=== PATIENT | female | born 1975 | race Caucasian/White ===

== ENCOUNTER 2016-12-12 15:34 | Observation (INO) | payer OTHER ==
[2016-12-12 15:42] VITALS: BMI 25.6
[2016-12-12] MEDS ORDERED: Sodium Chloride 0.9% 1,000 ML IV STA (16:26)
[2016-12-12 16:54] LABS: ADD MANUAL DIFF? NO
[2016-12-12 17:02] LABS: BASO # 0.04 K/mm3 (0.0-2.0); BASO % 0.5 % (0.0-3.0); EOS # 0.1 (0.0-0.7); GRAN # 3.92 (1.4-6.5); GRAN % 49.4 % (50.0-68.0); HEMATOCRIT 38.8 % (36.0-48.0); LYMPH # 3.5 (1.2-3.4); LYMPH % 43.9 % (22.0-35.0); MEAN CELL VOLUME 82.6 fL (80.0-105.0); MEAN CORPUSCULAR HEMOGLOBIN 28.7 pg (25.0-35.0); MEAN CORPUSCULAR HGB CONC 34.8 g/dl (31.0-37.0); MONO # 0.4 (0.1-0.6); MONO % 5.2 % (1.0-6.0); PLATELET COUNT 342 10^3/uL (120.0-450.0); RED CELL DISTRIBUTION WIDTH 14.2 % (11.5-14.5); WHITE BLOOD COUNT 7.9 10^3/ul (4.5-11.0)
[2016-12-12 17:16] LABS: INR 1.04 (0.93-1.08); PARTIAL THROMBOPLASTIN TIME 23.5 Seconds (23.7-30.8)
[2016-12-12 17:17] LABS: ALB/GLOB RATIO 1.3 (1.1-1.8); ALKALINE PHOSPHATASE 86 U/L (38-133); ALT/SGPT 20 U/L (7-56); AST/SGOT 30 U/L (15-39); BILIRUBIN,TOTAL 0.7 mg/dL (0.2-1.3); BLOOD UREA NITROGEN 20 mg/dL (7-21); CALCIUM 9.9 mg/dL (8.4-10.5); CARBON DIOXIDE 29 mmol/L (21-33); CHLORIDE 91 mmol/L (98-107); GFR AFRICAN-AMERICAN > 60; GLUCOSE,RANDOM 295 mg/dL (70-110); MAGNESIUM 1.8 mg/dL (1.7-2.2); POTASSIUM 3.7 mmol/L (3.6-5.0); SODIUM 134 mmol/L (132-148)
--- NOTE | 2016-12-12 17:17 | ED PDOC ---
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 pt states was getting out of car, does not recall what happened, and was on floor on ground, with bystanders at bedside helping her. ems called, sent to er for eval. c/o of left knee and left elbow pain, and yo. no cp, abd pain, or other complaints 12/12/16 18:06 Past Medical History - Provider Review Nursing Documentation Reviewed: Yes - Infectious Disease Hx of Infectious Diseases: None - Cardiac Hx Hypertension: Yes Other/Comment: SVT - Pulmonary Hx Respiratory Disorders: No - Neurological Hx Neurological Disorder: Yes Other/Comment: [place] Palsy - HEENT Hx HEENT Disorder: No - Renal Hx Renal Disorder: No - Endocrine/Metabolic Hx Diabetes Mellitus Type 1: Yes Hx Diabetes Mellitus Type 2: Yes - Hematological/Oncological Hx Blood Disorders: No - Integumentary Hx Dermatological Disorder: No - Musculoskeletal/Rheumatological Hx Musculoskeletal Disorders: Yes Other/Comment: L knee ? tear - Gastrointestinal Hx Gastrointestinal Disorders: No - Genitourinary/Gynecological Hx Genitourinary Disorders: No - Psychiatric Hx Depression: Yes Hx Substance Use: No - Anesthesia Hx Anesthesia: No - Suicidal Assessment Feels Threatened In Home Enviroment: No Family/Social History - Physician Review Nursing Documentation Reviewed: Yes Family/Social History: Unknown Family HX Smoking Status: Never Smoked Hx Alcohol Use: No Hx Substance Use: No Allergies/Home Meds Allergies/Adverse Reactions: Allergies hair dye Allergy (Uncoded 11/03/16 21:41) RASH Home Medications: Home Meds Medication Instructions Recorded Confirmed Esomeprazole Magnesium [Nexium] 1 tab PO DAILY 07/25/14 07/25/14 Glimepiride 1 tab PO DAILY 07/25/14 07/25/14 Metoprolol Succinate 1 tab PO DAILY 07/25/14 07/25/14 Sitagliptin Phosphate [Januvia] 1 tab PO DAILY 07/25/14 07/25/14 Aspirin [Aspirin EC] 325 mg PO DAILY 12/13/16 12/13/16 Atenolol/Chlorthalidone 1 tab PO DAILY 12/13/16 12/13/16 [Atenolol-Chlorthalidone 100-25] Atorvastatin Calcium 20 mg PO DIN 12/13/16 12/13/16 Cetirizine HCl [All Day Allergy 10 mg PO DAILY 12/13/16 12/13/16 Relief] Dicyclomine HCl 10 mg PO Q6 12/13/16 12/13/16 GlipiZIDE [Glipizide] 10 mg PO Q12 12/13/16 12/13/16 Lisinopril [Zestril] 5 mg PO DAILY 12/13/16 12/13/16 Metoprolol Tartrate [Lopressor] 100 mg PO BID 12/13/16 12/13/16 Omeprazole 40 mg PO BID 12/13/16 12/13/16 Paroxetine HCl [Paxil] 10 mg PO DAILY 12/13/16 12/13/16 Ranitidine HCl [Sunmark Acid 150 mg PO Q12 12/13/16 12/13/16 Steel Heater] Review of Systems - Review of Systems Constitutional: Normal Eyes: Normal ENT: Normal Respiratory: Normal Cardiovascular: Normal Gastrointestinal: Normal Genitourinary Female: Normal Musculoskeletal: Neck Pain, Other (elbow, knee pain) Skin: Normal Neurological: Normal Endocrine: Normal Hemo/Lymphatic: Normal Psychiatric: Normal Physical Exam Vital Signs Temp Pulse Resp BP Pulse Ox 12/13/16 00:00 98.0 F 89 20 123/68 100 12/12/16 16:40 102 H 18 126/69 99 12/12/16 15:48 98.7 F 118 H 18 128/71 99 Temperature: Afebrile Blood Pressure: Normal Pulse: Tachycardic Respiratory Rate: Normal Appearance: Positive for: Well-Appearing, Non-Toxic, Comfortable Pain Distress: None Mental Status: Positive for: Alert and Oriented X 3 Finger Stick Blood Glucose: 305 - Systems Exam Head: Present: Normocephalic, Abrasion (left side), Other (right facial droop (h /o of bells)) Pupils: Present: PERRL Extroacular Muscles: Present: EOMI Conjunctiva: Present: Normal Mouth: Present: Moist Mucous Membranes Neck: Present: Normal Range of Motion Respiratory/Chest: Present: Clear to Auscultation, Good Air Exchange. No: Respiratory Distress, Accessory Muscle Use Cardiovascular: Present: Regular Rate and Rhythm, Normal S1, S2. No: Murmurs Abdomen: Present: Normal Bowel Sounds. No: Tenderness, Distention, Peritoneal Signs Back: Present: Normal Inspection Upper Extremity: Present: Normal Inspection. No: Cyanosis, Edema Lower Extremity: Present: Normal Inspection, NORMAL PULSES, Tenderness (left knee elbow), Swelling (mild to left knee, elbow, ), Neurovascularly Intact. No : Edema Neurological: Present: GCS=15, CN II-XII Intact, Speech Normal, Motor Func Grossly Intact, Normal Cerebellar Funct Skin: Present: Warm, Dry, Normal Color. No: Rashes Psychiatric: Present: Alert, Oriented x 3, Normal Insight, Normal Concentration Medical Decision Making ED Course and Treatment: 12/12/16 17:16 ? etiology of fall. labs imaging pending. 12/12/16 17:17 ekg sinus tach [address] t wave changes. normal intervals 12/12/16 18:27 pt had blood splashed on worker. pt consents to hiv/hep panel. dr stack accepts for syncope - Lab Interpretations Lab Results: 12/12/16 16:35 12/12/16 16:35 Lab Results 12/12/16 18:23: Hepatitis A IgM Ab Negative, Hep Bs Antigen Negative, Hep B Core IgM Ab Negative, Hepatitis C Antibody Negative, HIV-1 Ab Rapid Screen Non reactive 12/12/16 17:05: Urine Color Yellow, Urine Appearance Sl cloudy, Urine pH 8.0, Ur Specific [place] 1.010, Urine Protein Trace H, Urine Glucose (UA) >=1000, Urine Ketones Negative, Urine Blood Large H, Urine Nitrate Negative, Urine Bilirubin Negative, Urine Urobilinogen 0.2, Ur Leukocyte Esterase Negative, Urine RBC Tntc, Urine WBC 2 - 5, Ur Epithelial Cells 4 - 5, Urine Bacteria Mod, Urine HCG, Qual Negative 12/12/16 16:40: POC Glucose (mg/dL) 305 H 12/12/16 16:35: WBC 7.9, RBC 4.70, Hgb 13.5, Hct 38.8, MCV 82.6, MCH 28.7, MCHC 34.8, RDW 14.2, Plt Count 342, MPV 11.0, Gran % 49.4 L, Lymph % (Auto) 43.9 H, [place] % (Auto) 5.2, Eos % (Auto) 1.0 L, Baso % (Auto) 0.5, Gran # 3.92, Lymph # 3.5 H, [place] # 0.4, Eos # 0.1, Baso # 0.04, PT 11.2, INR 1.04, APTT 23.5 L, Sodium 134, Potassium 3.7, Chloride 91 L, Carbon Dioxide 29, Anion Gap 18, BUN 20, Creatinine 0.6, Est GFR ( Amer) > 60, Est GFR (Non-Af Amer) > 60, Random Glucose 295 H, Calcium 9.9, Magnesium 1.8, Total Bilirubin 0.7, AST 30, ALT 20, Alkaline Phosphatase 86, Lactate Dehydrogenase 367, Total Creatine Kinase 21 L, Troponin I < 0.01, Total Protein 8.0, Albumin 4.5, Globulin 3.5, Albumin/Globulin Ratio 1.3 - RAD Interpretation Radiology Orders: 12/12/16 15:55 CHEST ONE VIEW [RAD] Stat 12/12/16 15:56 HEAD W/O CONTRAST [CT] Stat ELBOW LEFT 3 VIEWS ROUTINE [RAD] Stat KNEE LEFT 2 VIEWS (AP & LAT) [RAD] Stat PELVIS ONE VIEW [RAD] Stat 12/12/16 15:57 CERVICAL SPINE W/O CONTRAST [CT] Stat - Medication Orders Current Medication Orders: Atorvastatin Calcium (Lipitor) 10 mg PO DIN PADILLA Bacitracin (Bacitracin) 1 ea TOP TID PAD[facility]A Enoxaparin Sodium (Lovenox) 40 mg SC DAILY [facility]AD[facility]A PRN Reason: Protocol Fenofibrate (Tricor) 145 mg PO DAILY [facility] Glipizide (Glucotrol) 10 mg PO ACB [facility] Last Admin: 12/13/16 08:37 Dose: 10 MG Ibuprofen (Motrin Tab) 400 mg PO Q6 PRN PRN Reason: Pain, moderate (4-7) Last Admin: 12/13/16 00:41 Dose: 400 MG [facility] Pain/Vitals Document 12/13/16 00:41 KTR (Rec: 12/13/16 00:41 KTR [id number]) Pain Reassessment Is This A Pain ReAssessment? No Presence of Pain Presence of Pain Yes Location Left, Right or Bilateral Left Pain Location Body Site Knee Description Intermittent Re-Assess: MAR Pain/Vitals Document 12/13/16 01:41 KTR (Rec: 12/13/16 05:55 KTR [id number]) Pain Reassessment Is This A Pain ReAssessment? Yes Sleep Is patient sleeping during reassessment? Yes Insulin Detemir (Levemir) 15 unit SC Q12 [facility] Insulin Human Regular (Humulin R Low) 0 units SC ACHS [facility] Lisinopril (Zestril) 10 mg PO DAILY [facility] Metoprolol Succinate (Toprol Xl) 100 mg PO BRK [facility] Last Admin: 12/13/16 08:44 Dose: 100 MG MAR Pulse and Blood Pressure Document 12/13/16 08:44 KKA (Rec: 12/13/16 08:44 KK [id number]) Blood Pressure Blood Pressure (100/60-150/90) 125/65 Ondansetron HCl (Zofran Inj) 4 mg IVP Q6 PRN PRN Reason: Nausea/Vomiting Oxycodone/Acetaminophen (Percocet 5/325 Mg Tab) 1 tab PO Q4 PRN PRN Reason: Pain, severe (8-10) Stop: 12/15/16 19:43 Pantoprazole Sodium (Protonix Ec Tab) 40 mg PO DAILY [facility] Sitagliptin Phosphate (Januvia) 50 mg PO DAILY [facility] Discontinued Medications Acetaminophen (Tylenol 325mg Tab) 975 mg PO STAT STA Stop: 12/12/16 15:59 Last Admin: 12/12/16 16:12 Dose: 975 MG MAR Pain/Vitals Document 12/12/16 16:12 [email or web address] (Rec: 12/12/16 16:13 [email or web address] [id number]) Pain Reassessment Is This A Pain ReAssessment? No Sleep Is patient sleeping during reassessment? No Presence of Pain Presence of Pain Yes Pain Scale Used Pain Scale Used Numeric Location Pain Location Body Site Generalized Description Constant Intensity 8 Scale Used Numeric Pain Behavior Facial Grimacing Aggravating Factors Changing Position Aggravating Factors Changing Position Artificial Tears (Artificial Tears) 1 ml OU TID PADILLA Artificial Tears (Artificial Tears) 0 ml OU TID PRN PRN Reason: Dry eyes Last Admin: 12/13/16 05:21 Dose: 1 DROP Bacitracin (Bacitracin) 1 ea TOP ONCE ONE Stop: 12/12/16 18:07 Last Admin: 12/12/16 19:00 Dose: 1 EA Glipizide (Glucotrol) 10 mg PO 1630 [facility] Sodium Chloride (Sodium Chloride 0.9%) 1,000 mls @ 999 mls/hr IV .Q1H1M STA Stop: 12/12/16 17:26 Last Admin: 12/12/16 16:44 Dose: Not Given Non-Admin Reason: Patient Refused Insulin Human Regular (Humulin R Med) 1 units SC ACHS PADILLA PRN Reason: Protocol Last Admin: 12/13/16 08:37 Dose: 1 UNITS MAR Blood Glucose Document 12/13/16 08:37 [facility] (Rec: 12/13/16 08:37 [id number] Blood Glucose Finger Stick Blood Glucose (70-120) 280 Subcutaneous Administrations Document 12/13/16 08:37 [facility] (Rec: 12/13/16 08:37 [id number] Charges for Administration # of Subcutaneous Administrations 1 Metoprolol Succinate (Toprol Xl) 200 mg PO BRK [facility] Tetanus/Reduced Diphtheria/Acell Pertussis (Boostrix Vaccine Inj) 0.5 ml IM .ONCE ONE Stop: 12/12/16 18:07 Last Admin: 12/12/16 19:00 Dose: 0.5 ML [facility] Immunization Data Document 12/12/16 19:00 [email or web address] (Rec: 12/12/16 19:01 [id number]) Immunization Data Vaccine [employer] Vaccine Lot Number [id number] Vaccine Expiration Date 01/10/19 Site Given Right Deltoid Route Intramuscular Immunization Units ml Disposition/Present on Arrival - Present on Arrival Any Indicators Present on Arrival: No History of DVT/PE: No History of Uncontrolled Diabetes: No Urinary Catheter: No History of Decub. Ulcer: No History Surgical Site Infection Following: None - Disposition Have Diagnosis and Disposition been Completed?: Yes Diagnosis: Syncope Disposition: HOSPITALIZED Disposition Time: 07:00 Patient Problems: Current Active Problems Problem Status Diagnosed Syncope Acute Condition: STABLE
[2016-12-12 17:30] LABS: URINE BILIRUBIN NEGATIVE (NEGATIVE); URINE BLOOD LARGE (NEGATIVE); URINE GLUCOSE (UA) >=1000 mg/dL (NEGATIVE); URINE KETONE NEGATIVE (NEGATIVE); URINE LEUKOCYTE ESTERASE NEGATIVE Leu/uL (NEGATIVE); URINE PROTEIN TRACE mg/dL (<30 mg/dL); URINE UROBILINOGEN 0.2 E.U./dL (<1 E.U./dL)
[2016-12-12 17:33] LABS: TROPONIN I < 0.01 ng/mL
[2016-12-12 17:35] LABS: URINE APPEARANCE SL CLOUDY (CLEAR); URINE COLOR YELLOW (YELLOW)
[2016-12-12 17:36] LABS: URINE RBC TNTC /hpf (0-2)
[2016-12-12 17:37] LABS: URINE BACTERIA MOD (NEG)
--- NOTE | 2016-12-12 17:56 | CT ---
PROCEDURE: CT HEAD WITHOUT CONTRAST. HISTORY: trauma COMPARISON: 11/03/2016 TECHNIQUE: Axial computed tomography images were obtained through the head/brain without intravenous contrast. Radiation dose: Total exam DLP = 677.45 mGy-cm. FINDINGS: HEMORRHAGE: No intracranial hemorrhage. BRAIN: No mass effect or edema. No atrophy or chronic microvascular ischemic changes. VENTRICLES: Unremarkable. No hydrocephalus. CALVARIUM: Unremarkable. PARANASAL SINUSES: Unremarkable as visualized. No significant inflammatory changes. MASTOID AIR CELLS: Unremarkable as visualized. No inflammatory changes. OTHER FINDINGS: None. IMPRESSION: No intracranial hemorrhage. Unremarkable CT examination of the head
[2016-12-12] MEDS ORDERED: TDAP Vaccine 0.5 mL Syr IM ONE (18:06)
[2016-12-12] MEDS ORDERED: Bacitracin 500 Units/gm Oint Foilpak UD TOP ONE (18:06)
--- NOTE | 2016-12-12 18:14 | CT ---
CT cervical spine without IV contrast Indication: Trauma Comparison: None available Technique: Axial computed tomography images were obtained of the cervical spine without the use of intravenous contrast. Coronal and sagittal reformatted images were created and reviewed. Radiation dose: Total exam DLP = 558.18 mGy-cm. Findings: Straightening of the normal cervical lordosis may be related to muscle spasm or positioning. There is no evidence of acute fracture or subluxation. There is otherwise preserved alignment, vertebral body height, intervertebral disc spaces. The prevertebral soft tissues and spinolaminar lines appear intact. The lateral masses are preserved. The dens tip is intact. There is proper alignment of the lateral masses of C1 with the C2 vertebral body. Included portions of the thyroid gland appear heterogeneous with calcified right lower pole nodule and hypodense left lower pole nodule. Included portions of lung apices appear clear. Impression: Straightening of the normal cervical lordosis may be related to muscle spasm or positioning. No evidence of acute fracture or subluxation. Heterogeneous appearance of the included portions lower thyroid gland with calcified nodule in the right lower pole and hypodense left lower pole nodule.
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
[2016-12-12] MEDS ORDERED: Oxycodone/Acetaminophen 5/325 mg Tab PO PRN (19:42)
[2016-12-13] MEDS: Insulin Reg-MEDIUM-Coverage SC SCH ×2 (00:41→08:37)
[2016-12-13] MEDS ORDERED: Aritificial Tears (15ml) OU PRN (02:13)
--- NOTE | 2016-12-13 07:20 | RAD ---
HISTORY: fall COMPARISON: None available. TECHNIQUE: Chest, one view. FINDINGS: LUNGS: No focal consolidation. Please note that chest x-ray has limited sensitivity for the detection of pulmonary masses. PLEURA: No significant pleural effusion identified. No definite pneumothorax . CARDIOVASCULAR: The cardiomediastinal silhouette appears within normal limits of size. OSSEOUS STRUCTURES: No acute osseous abnormality identified. VISUALIZED UPPER ABDOMEN: Unremarkable. OTHER FINDINGS: None. IMPRESSION: No focal consolidation, significant pleural effusion, or definite pneumothorax identified.
[2016-12-13 07:52] LABS: ADD MANUAL DIFF? NO
[2016-12-13] MEDS ORDERED: Metoprolol Succinate 100 mg XL Tab PO SCH (08:00)
[2016-12-13 08:18] LABS: BASO # 0.03 K/mm3 (0.0-2.0); BASO % 0.4 % (0.0-3.0); EOS # 0.1 (0.0-0.7); EOS % 1.7 % (1.5-5.0); GRAN # 2.82 (1.4-6.5); GRAN % 40.8 % (50.0-68.0); HEMATOCRIT 34.5 % (36.0-48.0); LYMPH # 3.4 (1.2-3.4); LYMPH % 49.7 % (22.0-35.0); MEAN CELL VOLUME 82.3 fL (80.0-105.0); MEAN CORPUSCULAR HEMOGLOBIN 28.4 pg (25.0-35.0); MEAN CORPUSCULAR HGB CONC 34.5 g/dl (31.0-37.0); MONO # 0.5 (0.1-0.6); MONO % 7.4 % (1.0-6.0); PLATELET COUNT 302 10^3/uL (120.0-450.0); RED CELL DISTRIBUTION WIDTH 14.2 % (11.5-14.5); WHITE BLOOD COUNT 6.9 10^3/ul (4.5-11.0)
[2016-12-13 08:25] LABS: ALB/GLOB RATIO 1.2 (1.1-1.8); ALKALINE PHOSPHATASE 106 U/L (38-133); ALT/SGPT 15 U/L (7-56); AST/SGOT 16 U/L (15-39); BILIRUBIN,TOTAL 0.6 mg/dL (0.2-1.3); BLOOD UREA NITROGEN 23 mg/dL (7-21); CALCIUM 9.3 mg/dL (8.4-10.5); CARBON DIOXIDE 23 mmol/L (21-33); CHLORIDE 97 mmol/L (98-107); CHOLESTEROL 266 mg/dL (130-200); GFR AFRICAN-AMERICAN > 60; POTASSIUM 3.7 mmol/L (3.6-5.0); SODIUM 134 mmol/L (132-148); TOTAL PROTEIN 7.3 g/dL (5.8-8.3)
--- NOTE | 2016-12-13 08:26 | RAD ---
PROCEDURE: Radiographs of the left elbow. HISTORY: trauma COMPARISON: No prior. FINDINGS: BONES: Normal. No fracture. JOINTS: Normal. No osteoarthritis. SOFT TISSUES: Normal. JOINT EFFUSION: None. OTHER FINDINGS: None IMPRESSION: No evidence of acute fracture or dislocation.
--- NOTE | 2016-12-13 08:27 | RAD ---
PROCEDURE: Left Knee Radiographs. HISTORY: Pain. Status post fall COMPARISON: None. FINDINGS: BONES: Normal. No fracture. JOINTS: Normal. No osteoarthritis. JOINT EFFUSION: None. OTHER FINDINGS: None. IMPRESSION: No evidence of acute fracture or dislocation.
[2016-12-13 08:28] LABS: GLUCOSE,RANDOM 333 mg/dL (70-110)
--- NOTE | 2016-12-13 08:28 | RAD ---
PROCEDURE: Radiographs of the pelvis. HISTORY: fall COMPARISON: None. FINDINGS: BONES: Pelvic Bones: Unremarkable. Hips: Grossly unremarkable. JOINTS: Sacroiliac Joints: Unremarkable. Pubic Symphysis: Unremarkable. OTHER FINDINGS: None. IMPRESSION: No evidence of acute fracture or dislocation.
[2016-12-13] MEDS: Metoprolol Succinate 100 mg XL Tab PO SCH (08:44)
[2016-12-13 08:54] LABS: TROPONIN I < 0.01 ng/mL
[2016-12-13] MEDS ORDERED: Aritificial Tears (15ml) OU SCH (10:00)
[2016-12-13] MEDS ORDERED: Insulin Detemir 100 units/ml Vial (Levemir) SC SCH (10:15)
[2016-12-13] MEDS: Bacitracin 500 Units/gm Oint Foilpak UD TOP SCH ×3 (10:51→17:06)
[2016-12-13] MEDS: Enoxaparin 40 mg Syringe SC SCH (10:52)
[2016-12-13] MEDS: Pantoprazole 40 mg EC Tab PO SCH (10:52)
[2016-12-13] MEDS: Insulin Reg-LOW-Coverage SC SCH ×3 (11:44→22:10)
--- NOTE | 2016-12-13 11:54 | CON ---
DATE: 12/13/2016 REASON FOR CONSULTATION: Episode of passing out. HISTORY OF PRESENT ILLNESS: The patient is a 41-year-old female who I have been asked for evaluation of episode of passing out. The patient said she was getting out of the car yesterday. As she exite d the car, she just passed out. She felt lightheaded and passed out. She did not have any chest rhonda n. Did not have any urinary incontinence or tongue biting. She was unconscious briefly and slowly s he got up. She injured her left side of her body. REVIEW OF SYSTEMS: Positive for headache, positive for neck pain. Positive for left arm pain. Hollis es any chest pain, shortness of breath, abdominal pain, constipation, diarrhea, dysuria, pyuria, coug h or sputum production. PAST MEDICAL HISTORY: Includes hypertension, diabetes mellitus, Sevilla's palsy. PAST SURGICAL HISTORY: None. MEDICATIONS AT HOME: Included atorvastatin, ranitidine, atenolol, metoprolol, dicyclomine, paroxetin e, glipizide, aspirin, cetirizine. ALLERGIES: HAIR DYE. SOCIAL HISTORY: Denies smoking, use of alcohol or illicit drugs. FAMILY HISTORY: Noncontributory. PHYSICAL EXAMINATION: GENERAL: The patient is a middle-aged female lying on the bed in no acute distress. VITAL SIGNS: Her blood pressure is 99/68, heart rate is 89 per minute, breathing at a rate of 16 per minute, temperature is 98 degrees Fahrenheit. HEENT: Normocephalic, atraumatic. NECK: Supple. There are no carotid bruits. LUNGS: Clear. CARDIOVASCULAR: S1, S2 audible. No murmurs. ABDOMEN: Soft, nontender. Bowel sounds present. NEUROLOGIC EXAMINATION: MENTAL STATUS: The patient is awake, alert, oriented to time, place, person. Speech is fluent. Nam ing and repetition normal. Memory and cognition are intact. CRANIAL NERVES: Pupils are 4 mm, bilaterally reactive to light. Visual wells are full. Extraocula r movements are intact. There is decreased nasolabial fold on the right side. The patient has sligh t difficulty closing the right eye. There is contracture on the left side of the face. Tongue is mi dline. MOTOR: Tone is normal. Power is 5/5 bilaterally in all extremities. Left arm is in bandage because of the injury yesterday. GAIT: Deferred at the moment. LABORATORY DATA: Labs reviewed, show WBC of 6.9, hemoglobin 11.9, hematocrit 34.5 and platelets of 3 02. Sodium is 134, potassium 3.7, chloride of 97, carbon dioxide 23, BUN of 23, creatinine of 0.6 an d glucose of 333. She had a CT scan of the head done which is unremarkable. IMPRESSION: 1. Syncope, rule out seizure versus cardiac arrhythmia. 2. Recent Sevilla's palsy. RECOMMENDATIONS: 1. The patient to have MRI of the brain without contrast. 2. The patient on Percocet which is to be continued. 3. The patient to have cardiac monitoring for cardiac arrhythmias. 4. The patient to have warm compresses to her neck for her neck pain. 5. Please continue other treatment. Thank you for the opportunity to participate in the care of this patient. Abisai Burleson MD cc: [id number] TT: 12/13/2016 11:54:02 Confirmation # [id number] Dictation # [id number] tn
--- NOTE | 2016-12-13 13:10 | CON ---
DATE: 12/13/2016 REASON FOR CONSULTATION: Syncope. HISTORY OF PRESENT ILLNESS: The patient is a 41-year-old [place] female who has history of diabete s mellitus, hypertension and history of SVT. The patient also has facial palsy. A few months ago, t he patient suffered left-sided facial palsy and in October, she had right-sided Sevilla's palsy and rece ived steroid therapy. The patient has history SVT and is receiving metoprolol for that. The patient presents because of a syncopal episode. The patient does not recall what happened except that she s lumped to the floor and had left cheek bruising. The patient, after recovery, experienced palpitatio n, but did not experience dizziness. SOCIAL HISTORY: The patient is nonsmoker. She is . Has no children. MENSTRUAL HISTORY: The patient had her menses 3 days ago. MEDICATIONS: Glipizide 10 mg once a day, Januvia 50 mg daily, Levemir 15 units subcutaneous twice a day, Lovenox 40 mg subcutaneous once a day, Protonix 40 mg once a day, Toprol-XL 100 mg once a day, T ricor 145 mg once a day, Zestril 10 mg once a day. PHYSICAL EXAMINATION: GENERAL: The patient is a middle-aged female who does not appear to be in any distress. VITAL SIGNS: Blood pressure 99/68, heart rate 89, temperature 98, respirations 20. HEENT: Normocephalic. Loss of right nasolabial fold as well as inability to completely close right eye, left cheek bruising. NECK: No JVD. CHEST: Clear. HEART: S1, S2 regular. ABDOMEN: Soft. EXTREMITIES: No edema. LABORATORY DATA: SMA-7: Sodium 134, potassium 3.7, chloride 97, CO2 23, glucose 333, BUN 23, creati nine 0.6. Two sets of troponins are negative. TSH level is within normal limits. PTT 23.5, INR 1.0 4, hemoglobin and hematocrit 11.9 and 34.5, platelet count and white count are within normal limits. EKG revealed sinus tachycardia at a rate of 113. The following radiographic studies including cervical spine CT scan, pelvic x-ray, knee x-ray, head C T scan, elbow x-ray, revealed no acute findings. ASSESSMENT: 1. Syncopal episode. 2. History of supraventricular tachycardia. 3. Hypertension. 4. Uncontrolled diabetes mellitus. 5. Recent Sevilla's palsy. RECOMMENDATIONS: Continue current telemetry monitoring. Continue current Lipitor, Toprol-XL, Tricor , Zestril. I will follow echocardiographic study performed today. Miki Hernandez MD cc: [id number] TT: 12/13/2016 13:10:16 Confirmation # [id number] Dictation # [id number] rn
--- NOTE | 2016-12-13 13:48 | CP.PCM.PN ---
<Fabian Mitchell - Last Filed: 12/13/16 15:31> Subjective - Date & Time of Evaluation Date of Evaluation: 12/13/16 Time of Evaluation: 07:15 - Subjective Subjective: PGY-1 Medicine Progress Note for Dr. Carter Patient seen and examined at bedside. No acute event overnight. Patient lying in bed, resting comfortably. Patient complaining of Leftelbow and Left knee pain. 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 Patient is complaining of headache and blurry vision as a result. Denied fever/chills, cp, sob, palpitations, abd pain, n/v/d. Objective - Vital Signs/Intake and Output Vital Signs (last 24 hours): Temp Pulse Resp BP Pulse Ox 98.6 F 92 H 18 122/75 97 12/13/16 12:00 12/13/16 12:00 12/13/16 12:00 12/13/16 12:00 12/13/16 05:59 Intake and Output: 12/13/16 12/13/16 06:59 18:59 Intake Total 960 Output Total 1 Balance 959 - Medications Medications: Current Medications Atorvastatin Calcium (Lipitor) 10 mg PO DIN [facility] Bacitracin (Bacitracin) 1 ea TOP TID [facility] Last Admin: 12/13/16 10:51 Dose: 1 ea Enoxaparin Sodium (Lovenox) 40 mg SC DAILY [facility] PRN Reason: Protocol Last Admin: 12/13/16 10:52 Dose: 40 mg Fenofibrate (Tricor) 145 mg PO DAILY [facility] Last Admin: 12/13/16 10:52 Dose: 145 mg Glipizide (Glucotrol) 10 mg PO ACB [facility] Last Admin: 12/13/16 08:37 Dose: 10 mg Ibuprofen (Motrin Tab) 400 mg PO Q6 PRN PRN Reason: Pain, moderate (4-7) Last Admin: 12/13/16 10:52 Dose: 400 mg Insulin Detemir (Levemir) 15 unit SC Q12 [facility] Last Admin: 12/13/16 10:51 Dose: 15 unit Insulin Human Regular (Humulin R Low) 0 units SC ACHS [facility] Last Admin: 12/13/16 11:44 Dose: 3 units Lisinopril (Zestril) 10 mg PO DAILY [facility] Last Admin: 12/13/16 10:52 Dose: 10 mg Metoprolol Succinate (Toprol Xl) 100 mg PO BRK [facility] Last Admin: 12/13/16 08:44 Dose: 100 mg Ondansetron HCl (Zofran Inj) 4 mg IVP Q6 PRN PRN Reason: Nausea/Vomiting Oxycodone/Acetaminophen (Percocet 5/325 Mg Tab) 1 tab PO Q4 PRN PRN Reason: Pain, severe (8-10) Stop: 12/15/16 19:43 Pantoprazole Sodium (Protonix Ec Tab) 40 mg PO DAILY [facility] Last Admin: 12/13/16 10:52 Dose: 40 mg Sitagliptin Phosphate (Januvia) 50 mg PO DAILY [facility] Last Admin: 12/13/16 10:52 Dose: 50 mg - Labs Labs: 12/13/16 07:35 12/13/16 07:35 PT 11.2 Seconds (9.9-11.8) 12/12/16 16:35 INR 1.04 (0.93-1.08) 12/12/16 16:35 APTT 23.5 Seconds (23.7-30.8) L 12/12/16 16:35 - Constitutional Appears: No Acute Distress - Head Exam Head Exam: NORMOCEPHALIC Additional comments: frontal contusion - Eye Exam Eye Exam: PERRL Additional comments: left sided residual facial droop. right eye remains open 2/2 hx Sevilla's palsy - ENT Exam ENT Exam: Mucous Membranes Moist - Respiratory Exam Respiratory Exam: Clear to Ausculation Bilateral, NORMAL BREATHING PATTERN - Cardiovascular Exam Cardiovascular Exam: REGULAR RHYTHM, +S1, +S2 - GI/Abdominal Exam GI & Abdominal Exam: Soft, Normal Bowel Sounds. absent: Tenderness - Extremities Exam Extremities Exam: Normal Capillary Refill, Tenderness. absent: Calf Tenderness , Pedal Edema Additional comments: Tenderness along left elbow and left knee - Back Exam Back Exam: absent: CVA tenderness (L), CVA tenderness (R) - Neurological Exam Neurological Exam: Alert, Awake, Oriented x3 - Psychiatric Exam Psychiatric exam: Normal Affect, Normal Mood - Skin Skin Exam: Dry, Intact, Warm Assessment and Plan - Assessment and Plan (Free Text) Plan: Syncope * Hx of SVT * EKG: sinus tachycardia @ 112BPM, troponin negative * Cardiology consulted: Dr. Hernandez - help appreciated * Neurology consulted: Dr. Lucie Burleson- help appreciated * Head CT: Unremarkable Head CT. * Cervical Spine CT: Straightening of the normal cervical lordosis may be related to muscle spasm or positioning. No evidence of acute fracture or subluxation. Heterogeneous appearance of the included portions lower thyroid gland with calcified nodule in the right lower pole and hypodense left lower pole nodule. * Hep B,C, HIV- negative * F/U ECHO, Carotid dopplers Fall * Motrin, Percocet, Morphine PRN for pain * Pelvis Xray, Knee Xray, Elbow Xray, CXR: all negative HTN * Restarted home medications: Lisinopril 10mg PO daily, Metoprolol 100mg PO daily [facility] * Lipitor 10mg PO QHS * Tricor 145mg PO daily * F/U lipid panel DM * Accuchecks * Glipizide 10mg PO daily * ISS- medium * HgbA1C Hx Sevilla's Palsy * Artificial Tears TID Prophylactic Measures * GI PPX: Protonix 40mg PO daily * DVT PPX: SCDs, Lovenox 40mg SC daily * HHD * Zofran PRN * PT Eval * [employer] Custodian Eval <Tai Carter - Last Filed: 12/13/16 16:44> Objective - Vital Signs/Intake and Output Vital Signs (last 24 hours): Temp Pulse Resp BP Pulse Ox 98.6 F 92 H 18 122/75 97 12/13/16 12:00 12/13/16 14:00 12/13/16 12:00 12/13/16 12:00 12/13/16 05:59 Intake and Output: 12/13/16 12/13/16 06:59 18:59 Intake Total 960 Output Total 1 Balance 959 - Medications Medications: Current Medications Artificial Tears (Artificial Tears) 1 ml OU BID [facility] Atorvastatin Calcium (Lipitor) 10 mg PO DIN [facility] Bacitracin (Bacitracin) 1 ea TOP TID [facility] Last Admin: 12/13/16 10:51 Dose: 1 ea Enoxaparin Sodium (Lovenox) 40 mg SC DAILY [facility] PRN Reason: Protocol Last Admin: 12/13/16 10:52 Dose: 40 mg Fenofibrate (Tricor) 145 mg PO DAILY [facility] Last Admin: 12/13/16 10:52 Dose: 145 mg Glipizide (Glucotrol) 10 mg PO ACB [facility] Last Admin: 12/13/16 08:37 Dose: 10 mg Ibuprofen (Motrin Tab) 400 mg PO Q6 PRN PRN Reason: Pain, moderate (4-7) Last Admin: 12/13/16 10:52 Dose: 400 mg Insulin Detemir (Levemir) 15 unit SC Q12 [facility] Last Admin: 12/13/16 10:51 Dose: 15 unit Insulin Human Regular (Humulin R Low) 0 units SC ACHS [facility] Last Admin: 12/13/16 11:44 Dose: 3 units Lisinopril (Zestril) 10 mg PO DAILY [facility] Last Admin: 12/13/16 10:52 Dose: 10 mg Metoprolol Succinate (Toprol Xl) 100 mg PO BRK [facility] Last Admin: 12/13/16 08:44 Dose: 100 mg Ondansetron HCl (Zofran Inj) 4 mg IVP Q6 PRN PRN Reason: Nausea/Vomiting Oxycodone/Acetaminophen (Percocet 5/325 Mg Tab) 1 tab PO Q4 PRN PRN Reason: Pain, severe (8-10) Stop: 12/15/16 19:43 Pantoprazole Sodium (Protonix Ec Tab) 40 mg PO DAILY [facility] Last Admin: 12/13/16 10:52 Dose: 40 mg Sitagliptin Phosphate (Januvia) 50 mg PO DAILY [facility] Last Admin: 12/13/16 10:52 Dose: 50 mg - Labs Labs: 12/13/16 07:35 12/13/16 07:35 PT 11.2 Seconds (9.9-11.8) 12/12/16 16:35 INR 1.04 (0.93-1.08) 12/12/16 16:35 APTT 23.5 Seconds (23.7-30.8) L 12/12/16 16:35 Assessment and Plan - Assessment and Plan (Free Text) Assessment: attending note; Patient seen and examined with resident. complaining of generalized discomfort. complaining of pain in the left knee and ankle area. history of Sevilla's palsy. Artificial tears ordered. CT head, CT cervical spine, x-rays negative. MRI of the knee And ankle ordered. anxiety depression;We'll get psychiatric evaluation. h/o SVT; case discussed with cardiology in detail. currently in sinus rhythm. Continue metoprolol. Diabetes; continue metformin, januvia and Levemir. We will get echocardiogram, carotid Doppler, EEG and MRI. physical therapy evaluation. upon discharge patient will follow-up with PMD . Attending/Attestation - Attestation I have personally seen and examined this patient.: Yes I have fully participated in the care of the patient.: Yes I have reviewed all pertinent clinical information, including history, physical exam and plan: Yes
--- NOTE | 2016-12-13 13:58 | CP.PCM.PCO ---
Physician Communication Note - Physician Communication Note Physician Communication Note: pt was at ECHO procedure, will f/u on pt tomorrow.
--- NOTE | 2016-12-13 16:49 | US ---
PROCEDURE: Bilateral carotid artery duplex ultrasound HISTORY: Carotid stenosis syncope PHYSICIAN(S): Jack Grimes MD. TECHNIQUE: Duplex sonography and color-flow Doppler were used to evaluate the carotid bifurcations and limited segments of the vertebral arteries bilaterally. FINDINGS: There is mild smooth hypoechoic plaque noted at the carotid bifurcations bilaterally. The peak systolic velocity in the proximal right internal carotid artery is 92 cm/sec. This corresponds to a 20 to 39% proximal right ICA stenosis. Normal systolic velocities are noted in the proximal right external carotid artery. There is antegrade flow in the right vertebral artery. The peak systolic velocity in the proximal left internal carotid artery is 93 cm/sec. This corresponds to a 20 to 39% proximal left ICA stenosis. Normal systolic velocities are noted in the proximal left external carotid artery. There is antegrade flow in the left vertebral artery. IMPRESSION: 1. Bilateral 20-39% proximal ICA stenoses. 2. Antegrade flow in both vertebral arteries.
[2016-12-13] MEDS: Aritificial Tears (15ml) OU SCH (17:06)
--- NOTE | 2016-12-13 17:36 | CARD ---
APPROVED REPORT EXAM: Two-dimensional and M-mode echocardiogram with Doppler and color Doppler. INDICATION Syncope 2D DIMENSIONS Left Atrium (2D)3.8 (1.6-4.0cm)IVSd0.8 (0.7-1.1cm) LVDd3.7 (3.9-5.9cm)PWd0.9 (0.7-1.1cm) LVDs2.4 (2.5-4.0cm)FS (%) 36.9 % LVEF (%)67.6 (>50%) M-Mode DIMENSIONS Aortic Root2.80 (2.2-3.7cm)Aortic Cusp Exc.1.50 (1.5-2.0cm) Aortic Valve AoV Peak Gecnvezi440.0cm/Urszula Peak GR.11mmHg Mitral Valve MV E Rwxtqblt81.9cm/sMV A Nssfawoo30.8cm/sE/A ratio0.9 TDI Lateral E' Peak V10.60cm/sMedial E' Peak V7.02cm/sE/Lateral E'7.9 E/Medial E'12.0 Pulmonary Valve PV Peak Ukmuyyvo53.9cm/sPV Peak Grad.3mmHg Tricuspid Valve TR Peak [id number]/sRAP [id number] Peak Gr.22mmHg [id number] LEFT VENTRICLE The left ventricle is normal size. There is normal left ventricular wall thickness. The left ventricular function is normal. The left ventricular ejection fraction is within the normal range. There is normal LV segmental wall motion. Transmitral Doppler flow pattern is Grade I-abnormal relaxation pattern. RIGHT VENTRICLE The right ventricle is normal size. There is normal right ventricular wall thickness. The right ventricular systolic function is normal. ATRIA The left atrium size is normal. The right atrium size is normal. AORTIC VALVE The aortic valve is mildly thickened. MITRAL VALVE The mitral valve is mildly thickened. TRICUSPID VALVE There is trace tricuspid regurgitation. GREAT VESSELS The aortic root is normal in size. The IVC is normal in size and collapses >50% with inspiration. PERICARDIAL EFFUSION There is a trace loculated anterior pericardial effusion. <Conclusion> The left ventricle is normal size. There is normal left ventricular wall thickness. The left ventricular function is normal. The left ventricular ejection fraction is within the normal range. There is normal LV segmental wall motion. Transmitral Doppler flow pattern is Grade I-abnormal relaxation pattern.
--- NOTE | 2016-12-13 18:10 | CARD ---
APPROVED REPORT EKG Measurement Heart [id number] <Conclusion> Sinus tachycardia Nonspecific T wave abnormality Abnormal ECG
[2016-12-13] MEDS: Insulin Detemir 100 units/ml Vial (Levemir) SC SCH (22:10)
[2016-12-14] MEDS: Metoprolol Succinate 100 mg XL Tab PO SCH (08:12)
[2016-12-14] MEDS: Insulin Reg-LOW-Coverage SC SCH ×4 (08:12→21:57)
[2016-12-14 08:58] LABS: ADD MANUAL DIFF? NO
[2016-12-14 09:05] LABS: BASO # 0.02 K/mm3 (0.0-2.0); BASO % 0.3 % (0.0-3.0); EOS # 0.1 (0.0-0.7); EOS % 1.9 % (1.5-5.0); GRAN % 43.3 % (50.0-68.0); HEMATOCRIT 33.5 % (36.0-48.0); LYMPH # 3.2 (1.2-3.4); LYMPH % 49.1 % (22.0-35.0); MEAN CELL VOLUME 82.7 fL (80.0-105.0); MEAN CORPUSCULAR HEMOGLOBIN 28.1 pg (25.0-35.0); MEAN PLATELET VOLUME 10.3 fl (7.0-11.0); MONO # 0.4 (0.1-0.6); MONO % 5.4 % (1.0-6.0); PLATELET COUNT 275 10^3/uL (120.0-450.0); RED CELL DISTRIBUTION WIDTH 14.1 % (11.5-14.5); WHITE BLOOD COUNT 6.5 10^3/ul (4.5-11.0)
[2016-12-14 09:13] LABS: ALB/GLOB RATIO 1.3 (1.1-1.8); ALKALINE PHOSPHATASE 86 U/L (38-133); ALT/SGPT 14 U/L (7-56); AST/SGOT 17 U/L (15-39); BILIRUBIN,TOTAL 0.5 mg/dL (0.2-1.3); BLOOD UREA NITROGEN 14 mg/dL (7-21); CALCIUM 9.1 mg/dL (8.4-10.5); CARBON DIOXIDE 23 mmol/L (21-33); CHLORIDE 100 mmol/L (95-110); GFR AFRICAN-AMERICAN > 60; GLUCOSE,RANDOM 255 mg/dL (70-110); SODIUM 134 mmol/L (132-148); TOTAL PROTEIN 6.7 g/dL (5.8-8.3)
[2016-12-14] MEDS: Aritificial Tears (15ml) OU SCH ×2 (09:32→17:00)
[2016-12-14] MEDS: Pantoprazole 40 mg EC Tab PO SCH (09:33)
[2016-12-14] MEDS: Enoxaparin 40 mg Syringe SC SCH (09:35)
[2016-12-14] MEDS: Bacitracin 500 Units/gm Oint Foilpak UD TOP SCH ×3 (10:02→17:00)
[2016-12-14] MEDS: Insulin Detemir 100 units/ml Vial (Levemir) SC SCH ×2 (10:04→22:23)
--- NOTE | 2016-12-14 11:38 | CP.PCM.PN ---
<Fabian Mitchell - Last Filed: 12/14/16 12:13> Subjective - Date & Time of Evaluation Date of Evaluation: 12/14/16 Time of Evaluation: 07:00 - Subjective Subjective: PGY-1 Medicine Progress Note for Dr. Carter Patient seen and examined at bedside. No acute event overnight. Patient lying in bed, resting comfortably. Patient still complaining of Left elbow and Left knee/ankle pain. 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 Patient is complaining of headache and blurry vision as a result. Denied fever/chills, cp, sob, palpitations, abd pain, n/v/d. Objective - Vital Signs/Intake and Output Vital Signs (last 24 hours): Temp Pulse Resp BP Pulse Ox 98.6 F 76 20 126/74 99 12/14/16 06:00 12/14/16 09:33 12/14/16 06:00 12/14/16 09:33 12/14/16 00:01 Intake and Output: 12/14/16 12/14/16 06:59 18:59 Intake Total 660 Balance 660 - Medications Medications: Current Medications Artificial Tears (Artificial Tears) 1 ml OU BID REPLACED BY [facility] Last Admin: 12/14/16 09:32 Dose: 1 drop Atorvastatin Calcium (Lipitor) 10 mg PO DIN REPLACED BY [facility] Last Admin: 12/13/16 17:08 Dose: 10 mg Bacitracin (Bacitracin) 1 ea TOP TID REPLACED BY [facility] Last Admin: 12/13/16 17:06 Dose: 1 ea Enoxaparin Sodium (Lovenox) 40 mg SC DAILY REPLACED BY [facility] PRN Reason: Protocol Last Admin: 12/14/16 09:35 Dose: 40 mg Fenofibrate (Tricor) 145 mg PO DAILY REPLACED BY [facility] Last Admin: 12/14/16 09:33 Dose: 145 mg Glipizide (Glucotrol) 10 mg PO ACB REPLACED BY [facility] Last Admin: 12/14/16 08:12 Dose: 10 mg Ibuprofen (Motrin Tab) 400 mg PO Q6 PRN PRN Reason: Pain, moderate (4-7) Last Admin: 12/14/16 09:44 Dose: 400 mg Insulin Detemir (Levemir) 20 unit SC Q12 REPLACED BY [facility] Last Admin: 12/13/16 22:10 Dose: 20 unit Insulin Human Regular (Humulin R Low) 0 units SC ACHS REPLACED BY [facility] Last Admin: 12/14/16 08:12 Dose: 3 units Lisinopril (Zestril) 10 mg PO DAILY REPLACED BY [facility] Last Admin: 12/14/16 09:33 Dose: 10 mg Metoprolol Succinate (Toprol Xl) 100 mg PO BRK REPLACED BY [facility] Last Admin: 12/14/16 08:12 Dose: 100 mg Ondansetron HCl (Zofran Inj) 4 mg IVP Q6 PRN PRN Reason: Nausea/Vomiting Oxycodone/Acetaminophen (Percocet 5/325 Mg Tab) 1 tab PO Q4 PRN PRN Reason: Pain, severe (8-10) Stop: 12/15/16 19:43 Pantoprazole Sodium (Protonix Ec Tab) 40 mg PO DAILY REPLACED BY [facility] Last Admin: 12/14/16 09:33 Dose: 40 mg Sitagliptin Phosphate (Januvia) 50 mg PO DAILY REPLACED BY [facility] Last Admin: 12/13/16 10:52 Dose: 50 mg - Labs Labs: 12/14/16 08:50 12/14/16 08:50 PT 11.2 Seconds (9.9-11.8) 12/12/16 16:35 INR 1.04 (0.93-1.08) 12/12/16 16:35 APTT 23.5 Seconds (23.7-30.8) L 12/12/16 16:35 - Constitutional Appears: No Acute Distress - Head Exam Head Exam: NORMOCEPHALIC Additional comments: frontal contusion - Eye Exam Pupil Exam: PERRL Additional comments: left sided residual facial droop. right eye remains open 2/2 hx Sevilla's palsy - ENT Exam ENT Exam: Mucous Membranes Moist - Respiratory Exam Respiratory Exam: Clear to Ausculation Bilateral, NORMAL BREATHING PATTERN - Cardiovascular Exam Cardiovascular Exam: REGULAR RHYTHM, +S1, +S2 - GI/Abdominal Exam GI & Abdominal Exam: Soft, Normal Bowel Sounds. absent: Tenderness - Extremities Exam Extremities Exam: Normal Capillary Refill Additional comments: Tenderness along left elbow and left knee - Back Exam Back Exam: absent: CVA tenderness (L), CVA tenderness (R) - Neurological Exam Neurological Exam: Alert, Awake, Oriented x3 - Psychiatric Exam Psychiatric exam: Normal Affect, Normal Mood - Skin Skin Exam: Dry, Intact, Normal Color, Warm Assessment and Plan - Assessment and Plan (Free Text) Plan: Syncope * Hx of SVT * EKG on admission: sinus tachycardia @ 112BPM, troponin negative * Cardiology consulted: Dr. Hernandez - help appreciated * Neurology consulted: Dr. Lucie Burleson- help appreciated * EEG * Head CT: Unremarkable Head CT. * Cervical Spine CT: Straightening of the normal cervical lordosis may be related to muscle spasm or positioning. No evidence of acute fracture or subluxation. Heterogeneous appearance of the included portions lower thyroid gland with calcified nodule in the right lower pole and hypodense left lower pole nodule. * Hep B,C, HIV- negative * F/U ECHO, Carotid dopplers Fall * Motrin, Percocet, Morphine PRN for pain * Pelvis Xray, Knee Xray, Elbow Xray, CXR: all negative * MRI Brain, Left knee and Left ankle HTN * Restarted home medications: Lisinopril 10mg PO daily, Metoprolol 100mg PO daily HLD * Lipitor 10mg PO QHS * Tricor 145mg PO daily * F/U lipid panel DM * Accuchecks * Glipizide 10mg PO daily * ISS- medium * HgbA1C Hx Sevilla's Palsy * Artificial Tears TID Prophylactic Measures * GI PPX: Protonix 40mg PO daily * DVT PPX: SCDs, Lovenox 40mg SC daily * HHD * Zofran PRN * PT Eval * Medical Underwriter Eval <Tai Carter - Last Filed: 12/14/16 16:20> Objective - Vital Signs/Intake and Output Vital Signs (last 24 hours): Temp Pulse Resp BP Pulse Ox 98.0 F 74 18 112/76 97 12/14/16 12:00 12/14/16 14:00 12/14/16 13:01 12/14/16 12:00 12/14/16 12:00 Intake and Output: 12/14/16 12/14/16 06:59 18:59 Intake Total 660 Balance 660 - Medications Medications: Current Medications Artificial Tears (Artificial Tears) 1 ml OU BID REPLACED BY [facility] Last Admin: 12/14/16 09:32 Dose: 1 drop Atorvastatin Calcium (Lipitor) 10 mg PO DIN REPLACED BY [facility] Last Admin: 12/13/16 17:08 Dose: 10 mg Bacitracin (Bacitracin) 1 ea TOP TID REPLACED BY [facility] Last Admin: 12/14/16 13:27 Dose: 1 ea Enoxaparin Sodium (Lovenox) 40 mg SC DAILY REPLACED BY [facility] PRN Reason: Protocol Last Admin: 12/14/16 09:35 Dose: 40 mg Fenofibrate (Tricor) 145 mg PO DAILY REPLACED BY [facility] Last Admin: 12/14/16 09:33 Dose: 145 mg Glipizide (Glucotrol) 10 mg PO ACB REPLACED BY [facility] Last Admin: 12/14/16 08:12 Dose: 10 mg Ibuprofen (Motrin Tab) 400 mg PO Q6 PRN PRN Reason: Pain, moderate (4-7) Last Admin: 12/14/16 09:44 Dose: 400 mg Insulin Detemir (Levemir) 20 unit SC Q12 REPLACED BY [facility] Last Admin: 12/14/16 10:04 Dose: 20 unit Insulin Human Regular (Humulin R Low) 0 units SC ACHS REPLACED BY [facility] Last Admin: 12/14/16 11:03 Dose: 1 units Lisinopril (Zestril) 10 mg PO DAILY REPLACED BY [facility] Last Admin: 12/14/16 09:33 Dose: 10 mg Metoprolol Succinate (Toprol Xl) 100 mg PO BRK REPLACED BY [facility] Last Admin: 12/14/16 08:12 Dose: 100 mg Ondansetron HCl (Zofran Inj) 4 mg IVP Q6 PRN PRN Reason: Nausea/Vomiting Oxycodone/Acetaminophen (Percocet 5/325 Mg Tab) 1 tab PO Q4 PRN PRN Reason: Pain, severe (8-10) Stop: 12/15/16 19:43 Pantoprazole Sodium (Protonix Ec Tab) 40 mg PO DAILY REPLACED BY [facility] Last Admin: 12/14/16 09:33 Dose: 40 mg Sitagliptin Phosphate (Januvia) 50 mg PO DAILY REPLACED BY [facility] Last Admin: 12/14/16 10:03 Dose: 50 mg Trazodone HCl (Desyrel) 50 mg PO HS PRN PRN Reason: insomnia - Labs Labs: 12/14/16 08:50 12/14/16 08:50 PT 11.2 Seconds (9.9-11.8) 12/12/16 16:35 INR 1.04 (0.93-1.08) 12/12/16 16:35 APTT 23.5 Seconds (23.7-30.8) L 12/12/16 16:35 Assessment and Plan - Assessment and Plan (Free Text) Assessment: attending note; Patient seen and examined with resident. complaining of generalized discomfort. complaining of pain in the left knee and ankle area. history of Sevilla's palsy. Artificial tears ordered. CT head, CT cervical spine, x-rays negative. MRI of the knee And ankle ordered. anxiety depression; psych evaluation appreciated. They offered transfer to inpatient psychiatric floor for further treatment. h/o SVT; no episode of SVT noted .case discussed with cardiology in detail. currently in sinus rhythm. Continue metoprolol. Diabetes; continue metformin, januvia and Levemir. Echo, carotid Doppler normal. EEG done. Results pending. physical therapy evaluation. upon discharge patient will follow-up with PMD . Attending/Attestation - Attestation I have personally seen and examined this patient.: Yes I have fully participated in the care of the patient.: Yes I have reviewed all pertinent clinical information, including history, physical exam and plan: Yes
--- NOTE | 2016-12-14 14:37 | PN ---
DATE: 12/14/2016 SUBJECTIVE: The patient denies any chest pain or shortness of breath. PHYSICAL EXAMINATION: VITAL SIGNS: Blood pressure 112/76, heart rate 74, temperature 98, respirations 20. HEENT: Recent right facial palsy, Sevilla's palsy. NECK: No JVD. CHEST: Clear. HEART: S1, S2 regular. EXTREMITIES: No edema. LABORATORIES: Today's hemoglobin and hematocrit are 11.4 and 33.5, white count and platelet count ar e within normal limits. Today's SMA-7 is within normal limits except glucose of 155. D-dimer was wi thin normal limits yesterday. Echocardiographic study revealed normal left ventricular size, wall th ickness and systolic function and normal segmental wall motion with an abnormal relaxation pattern. ASSESSMENT: 1. Syncopal episode. 2. History of ECT which has not been documented during this admission yet. 3. Recent Sevilla's palsy. 4. Diabetes mellitus. 5. Depression. RECOMMENDATIONS: Case was discussed with Dr. Carter. The patient was evaluated by psychiatrist hasmukh reyna in the process of being transferred to psych unit. In the meantime, the patient will be maintaine d on Lipitor, subcutaneous Lovenox, Toprol-XL, Tricor, and Zestril. Miki Hernandez MD cc: [id number] TT: 12/14/2016 14:36:38 Confirmation # [id number] Dictation # [id number] tn
--- NOTE | 2016-12-14 15:24 | MRI ---
PROCEDURE: MRI of the left ankle without contrast HISTORY: r/o L ankle fracture COMPARISON: TECHNIQUE: MRI of the left ankle was performed in multiple planes using multiple pulse sequences. FINDINGS: The bone marrow signal intensity is normal with no marrow edema to suggest bone bruise or fracture. There is no tendon or ligament tear. The Achilles tendon is unremarkable. The plantar fascia is unremarkable. IMPRESSION: Negative study
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
[2016-12-15 07:58] LABS: ADD MANUAL DIFF? NO
[2016-12-15 08:02] LABS: BASO # 0.03 K/mm3 (0.0-2.0); BASO % 0.5 % (0.0-3.0); EOS # 0.2 (0.0-0.7); EOS % 2.9 % (1.5-5.0); GRAN % 38.8 % (50.0-68.0); HEMATOCRIT 34.5 % (36.0-48.0); LYMPH # 3.2 (1.2-3.4); LYMPH % 51.5 % (22.0-35.0); MEAN CELL VOLUME 83.5 fL (80.0-105.0); MEAN CORPUSCULAR HEMOGLOBIN 28.3 pg (25.0-35.0); MEAN CORPUSCULAR HGB CONC 33.9 g/dl (31.0-37.0); MEAN PLATELET VOLUME 10.9 fl (7.0-11.0); MONO # 0.4 (0.1-0.6); MONO % 6.3 % (1.0-6.0); PLATELET COUNT 285 10^3/uL (120.0-450.0); RED CELL DISTRIBUTION WIDTH 14.1 % (11.5-14.5); WHITE BLOOD COUNT 6.2 10^3/ul (4.5-11.0)
[2016-12-15 08:15] LABS: ALB/GLOB RATIO 1.2 (1.1-1.8); ALKALINE PHOSPHATASE 85 U/L (38-133); ALT/SGPT 12 U/L (7-56); AST/SGOT 18 U/L (15-39); BILIRUBIN,TOTAL 0.4 mg/dL (0.2-1.3); BLOOD UREA NITROGEN 15 mg/dL (7-21); CALCIUM 9.1 mg/dL (8.4-10.5); CARBON DIOXIDE 25 mmol/L (21-33); CHLORIDE 103 mmol/L (95-110); GFR AFRICAN-AMERICAN > 60; GLUCOSE,RANDOM 207 mg/dL (70-110); POTASSIUM 4.2 mmol/L (3.6-5.0); SODIUM 138 mmol/L (132-148); TOTAL PROTEIN 6.7 g/dL (5.8-8.3)
[2016-12-15] MEDS: Insulin Detemir 100 units/ml Vial (Levemir) SC SCH ×3 (08:48→21:51)
[2016-12-15] MEDS: Insulin Reg-LOW-Coverage SC SCH ×4 (08:49→22:15)
[2016-12-15] MEDS: Metoprolol Succinate 100 mg XL Tab PO SCH (08:51)
[2016-12-15] MEDS: Bacitracin 500 Units/gm Oint Foilpak UD TOP SCH ×3 (09:26→16:59)
[2016-12-15] MEDS: Aritificial Tears (15ml) OU SCH ×2 (09:26→19:14)
[2016-12-15] MEDS: Pantoprazole 40 mg EC Tab PO SCH (09:27)
[2016-12-15] MEDS: Enoxaparin 40 mg Syringe SC SCH (09:27)
--- NOTE | 2016-12-15 11:45 | CP.PCM.DIS ---
Provider - Provider Date of Admission: 12/14/16 09:35 Attending physician: Tai Carter MD Primary care physician: Shira Moya MD Time Spent in preparation of Discharge (in minutes): 35 Hospital Course - Lab Results Lab Results: Most Recent Lab Values WBC 6.2 10^3/ul (4.5-11.0) 12/15/16 07:55 RBC 4.13 10^6/uL (3.5-6.1) 12/15/16 07:55 Hgb 11.7 gm/dL (12.0-16.0) L 12/15/16 07:55 Hct 34.5 % (36.0-48.0) L 12/15/16 07:55 MCV 83.5 fL (80.0-105.0) 12/15/16 07:55 MCH 28.3 pg (25.0-35.0) 12/15/16 07:55 MCHC 33.9 g/dl (31.0-37.0) 12/15/16 07:55 RDW 14.1 % (11.5-14.5) 12/15/16 07:55 Plt Count 285 10^3/uL (120.0-450.0) 12/15/16 07:55 MPV 10.9 fl (7.0-11.0) 12/15/16 07:55 Gran % 38.8 % (50.0-68.0) L 12/15/16 07:55 Lymph % (Auto) 51.5 % (22.0-35.0) H 12/15/16 07:55 Lander % (Auto) 6.3 % (1.0-6.0) H 12/15/16 07:55 Eos % (Auto) 2.9 % (1.5-5.0) 12/15/16 07:55 Baso % (Auto) 0.5 % (0.0-3.0) 12/15/16 07:55 Gran # 2.40 (1.4-6.5) 12/15/16 07:55 Lymph # 3.2 (1.2-3.4) 12/15/16 07:55 Lander # 0.4 (0.1-0.6) 12/15/16 07:55 Eos # 0.2 (0.0-0.7) 12/15/16 07:55 Baso # 0.03 K/mm3 (0.0-2.0) 12/15/16 07:55 PT 11.2 Seconds (9.9-11.8) 12/12/16 16:35 INR 1.04 (0.93-1.08) 12/12/16 16:35 APTT 23.5 Seconds (23.7-30.8) L 12/12/16 16:35 D-Dimer, Quantitative 0.25 mg/L FEU (0-0.50) 12/13/16 12:20 Sodium 138 mmol/L (132-148) 12/15/16 07:55 Potassium 4.2 mmol/L (3.6-5.0) 12/15/16 07:55 Chloride 103 mmol/L (95-110) 12/15/16 07:55 Carbon Dioxide 25 mmol/L (21-33) 12/15/16 07:55 Anion Gap 14 (10-20) 12/15/16 07:55 BUN 15 mg/dL (7-21) 12/15/16 07:55 Creatinine 0.5 mg/dL (0.5-1.4) 12/15/16 07:55 Est GFR ( Amer) > 60 12/15/16 07:55 Est GFR (Non-Af Amer) > 60 12/15/16 07:55 POC Glucose (mg/dL) 224 mg/dL (65-110) H 12/14/16 21:36 Random Glucose 207 mg/dL (70-110) H 12/15/16 07:55 Hemoglobin A1c 9.7 % (4.2-6.5) H 12/13/16 07:35 Calcium 9.1 mg/dL (8.4-10.5) 12/15/16 07:55 Magnesium 1.8 mg/dL (1.7-2.2) 12/12/16 16:35 Total Bilirubin 0.4 mg/dL (0.2-1.3) 12/15/16 07:55 AST 18 U/L (15-39) 12/15/16 07:55 ALT 12 U/L (7-56) 12/15/16 07:55 Alkaline Phosphatase 85 U/L (38-133) 12/15/16 07:55 Lactate Dehydrogenase 253 U/L (333-699) L 12/13/16 07:49 Total Creatine Kinase 22 U/L (35-230) L 12/13/16 07:49 Troponin I < 0.01 ng/mL 12/13/16 07:49 Total Protein 6.7 g/dL (5.8-8.3) 12/15/16 07:55 Albumin 3.7 g/dL (3.0-4.8) 12/15/16 07:55 Globulin 3.0 gm/dL 12/15/16 07:55 Albumin/Globulin Ratio 1.2 (1.1-1.8) 12/15/16 07:55 Triglycerides 2072 mg/dL (35-160) H 12/13/16 07:35 Cholesterol 266 mg/dL (130-200) H 12/13/16 07:35 LDL Cholesterol Direct < 30 mg/dL (0-129) 12/13/16 07:35 HDL Cholesterol 28 mg/dL (29-60) L 12/13/16 07:35 TSH 3rd Generation 2.02 mIU/mL (0.46-4.68) 12/13/16 07:35 Urine Color Yellow (YELLOW) 12/12/16 17:05 Urine Appearance Sl cloudy (CLEAR) 12/12/16 17:05 Urine pH 8.0 (4.7-8.0) 12/12/16 17:05 Ur Specific [place] 1.010 (1.005-1.035) 12/12/16 17:05 Urine Protein Trace mg/dL (<30 mg/dL) H 12/12/16 17:05 Urine Glucose (UA) >=1000 mg/dL (NEGATIVE) 12/12/16 17:05 Urine Ketones Negative mg/dL (NEGATIVE) 12/12/16 17:05 Urine Blood Large (NEGATIVE) H 12/12/16 17:05 Urine Nitrate Negative (NEGATIVE) 12/12/16 17:05 Urine Bilirubin Negative (NEGATIVE) 12/12/16 17:05 Urine Urobilinogen 0.2 E.U./dL (<1 E.U./dL) 12/12/16 17:05 Ur Leukocyte Esterase Negative Sam/uL (NEGATIVE) 12/12/16 17:05 Urine RBC Tntc /hpf (0-2) 12/12/16 17:05 Urine WBC 2 - 5 /hpf (0-6) 12/12/16 17:05 Ur Epithelial Cells 4 - 5 /hpf (0-5) 12/12/16 17:05 Urine Bacteria Mod (NEG) 12/12/16 17:05 Urine HCG, Qual Negative (NEGATIVE) 12/12/16 17:05 Hepatitis A IgM Ab Negative (NEGATIVE) 12/12/16 18:23 Hep Bs Antigen Negative (NEGATIVE) 12/12/16 18:23 Hep B Core IgM Ab Negative (NEGATIVE) 12/12/16 18:23 Hepatitis C Antibody Negative (NEGATIVE) 12/12/16 18:23 HIV-1 Ab Rapid Screen Non reactive (NON REAC) 12/12/16 18:23 - Hospital Course Hospital Course: patient is a 41-year-old female with a history of PTSD, extreme anxiety, sevilla' s palsy,SVT is admitted with fall. 1. Patient with a history of SVT in the past. But did not have any episode of SVT here. Monitored here closely in telemetry floor. Cardiology evaluation appreciated. Continue metoprolol. Cardiac enzymes negative. Echocardiogram normal. Cleared by cardiology for discharge. 2. Sevilla's palsy; chronic. Continue artificial tears.continue therapy. 3.headache;head CT is negative.neurology evaluation with geovanna Dotson appreciated. MRI ordered. EEG done. 4. Status post fall; CT head, CT cervical spine,, x-rays negative. 5. Extreme anxiety/PTSD; psychiatric evaluation appreciated. Accepted at psychiatric floor. Patient is still deciding about it. 6. GI/DVT prophylaxis. 7.diabetes; continue glipizide,Januvia and Levemir. upon discharge patient will follow-up with PMD Dr. Moya. The patient refused to go to the psychiatric floor today. Refused to sign consent for inpatient psychiatric Admission. MRI could not be done today. Patient walked with physical therapy. cane given by PT. Patient refused to go home. Patient wants to get her MRI done inpatient. Patient also wants to keep her left arm cast. Advised to follow-up with orthopedics as outpatient/or to ER for the removal of cast. X-ray did not show any fracture. Hand is not swollen. Copies of all the x-ray results, lab results given. Patient states "who wants to stay in the hospital". But when given discharge instructions refused to go home. she also said she could not lie down in MRI for long time. Advised to get open MRI as outpatient. she did not agree with that either. Treating nurse present during this conversation. Discharge Exam - Head Exam Head Exam: ATRAUMATIC, NORMOCEPHALIC - ENT Exam ENT Exam: Mucous Membranes Moist - Respiratory Exam Respiratory Exam: NORMAL BREATHING PATTERN - Cardiovascular Exam Cardiovascular Exam: REGULAR RHYTHM - GI/Abdominal Exam GI & Abdominal Exam: Normal Bowel Sounds, Soft, Tenderness. absent: Rebound, Rigid - Back Exam Back exam: absent: CVA tenderness (L), CVA tenderness (R) - Neurological Exam Neurological exam: Alert - Psychiatric Exam Psychiatric exam: Normal Affect - Skin Skin Exam: Normal Color (L arm in sling) Discharge Plan - Discharge Medications Prescriptions: Atorvastatin Calcium 20 mg PO DIN #14 Aspirin [Aspirin EC] 325 mg PO DAILY #14 tablet. traZODone [Desyrel] 50 mg PO HS PRN #20 tab PRN Reason: insomnia SITagliptin [Januvia] 50 mg PO DAILY #14 tab Insulin Detemir [Levemir] 30 unit SC Q12 #60 unit Paroxetine HCl [Paxil] 10 mg PO DAILY #14 tablet oxyCODONE/Acetaminophen [Percocet 5/325 mg Tab] 1 tab PO Q4 PRN #10 tab PRN Reason: Pain, Severe (8-10) Pantoprazole [Protonix EC Tab] 40 mg PO DAILY #14 ect Lisinopril [Zestril] 5 mg PO DAILY #14 tab - Follow Up Plan Condition: STABLE Disposition: HOME/ ROUTINE Instructions: Sevilla Palsy (DC), Heart Healthy Diet (DC), Syncope (DC), Diabetes Mellitus Type 2 in Adults (DC), Hypertension (DC), Fall Prevention (GEN) Additional Instructions: 1.follow-up with PMD within 1 week. 2.follow-up with mental health as needed. 3.follow-up with publication specialist in [facility]. 4.please take medications as prescribed. 5. if your condition worsens or new symptoms arise, please return to the emergency room. Referrals: [facility] [Outside] Shira Moya MD [Primary Care Provider] -
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
--- NOTE | 2016-12-15 13:47 | EEG ---
DATE: 12/14/2016 EEG report done on 12/14/2016 INTRODUCTION: This is a digitally recorded EEG monitoring using standard EEG montages. BACKGROUND RHYTHM: The EEG shows a background activity of 10-11 Hz alpha activity in parietooccipita l region. The EEG activity is bilaterally symmetrical and synchronous. There is attenuation of the background activity on eye opening. Moderate amount of myogenic artifact is noticed in this EEG lillian rding. ABNORMAL POTENTIALS: No spikes, sharp waves or focal slowing was seen. PHOTIC STIMULATION AND HYPERVENTILATION: Photic stimulation did not reveal any abnormality. Hyperve ntilation was not performed. IMPRESSION: Normal EEG. No epileptiform activity seen in this EEG recording. Abisai Burleson MD cc: [id number] TT: 12/15/2016 13:46:37 Confirmation # [id number] Dictation # [id number] poli
[2016-12-15] MEDS ORDERED: Alum-Mag Hydrox-Simethicone Susp (30 mL) PO ONE (23:25)
[2016-12-16] MEDS: Insulin Detemir 100 units/ml Vial (Levemir) SC SCH ×3 (08:20→21:33)
[2016-12-16] MEDS: Insulin Reg-LOW-Coverage SC SCH ×4 (08:21→22:00)
[2016-12-16] MEDS: Metoprolol Succinate 100 mg XL Tab PO SCH (08:29)
[2016-12-16] MEDS: Bacitracin 500 Units/gm Oint Foilpak UD TOP SCH ×3 (09:08→18:24)
[2016-12-16] MEDS: Aritificial Tears (15ml) OU SCH ×2 (09:08→18:24)
[2016-12-16] MEDS: Pantoprazole 40 mg EC Tab PO SCH (09:10)
[2016-12-16] MEDS: Enoxaparin 40 mg Syringe SC SCH (11:50)
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
[2016-12-16] MEDS ORDERED: guaiFENesin 100 mg/5 ml Syrup UD PO PRN (15:57)
--- NOTE | 2016-12-16 16:01 | CP.PCM.PN ---
<EddieEma - Last Filed: 12/16/16 16:14> Subjective - Date & Time of Evaluation Date of Evaluation: 12/16/16 Time of Evaluation: 08:25 - Subjective Subjective: Patient seen and examined at bedside. Patient refused medications and was upset at the staff overnight. Patient complains of generalized pain, cough and requested cough medications. Left arm cast was taken off due to irritations. Patient states she is very offended the fact that psychiatry evaluation recommended. Patient has multiple social issues. She demands to be seen by a school social worker. Objective - Vital Signs/Intake and Output Vital Signs (last 24 hours): Temp Pulse Resp BP Pulse Ox 98.2 F 105 H 20 135/83 98 12/15/16 16:00 12/16/16 09:09 12/15/16 16:00 12/16/16 09:09 12/15/16 16:00 Intake and Output: 12/16/16 12/16/16 06:59 18:59 Intake Total 1000 Balance 1000 - Medications Medications: Current Medications Alprazolam (Xanax) 0.5 mg PO TID PRN; Protocol PRN Reason: Anxiety Artificial Tears (Artificial Tears) 1 ml OU BID [facility] Last Admin: 12/16/16 09:08 Dose: 1 drop Atorvastatin Calcium (Lipitor) 10 mg PO DIN [facility] Last Admin: 12/15/16 17:00 Dose: 10 mg Bacitracin (Bacitracin) 1 ea TOP TID [facility] Last Admin: 12/16/16 15:03 Dose: 1 ea Dicyclomine HCl (Bentyl) 10 mg PO QID PRN PRN Reason: ibs Last Admin: 12/15/16 21:05 Dose: 10 mg Enoxaparin Sodium (Lovenox) 40 mg SC DAILY [facility] PRN Reason: Protocol Last Admin: 12/16/16 11:50 Dose: 40 mg Fenofibrate (Tricor) 145 mg PO DAILY [facility] Last Admin: 12/16/16 09:10 Dose: 145 mg Glipizide (Glucotrol) 10 mg PO ACB [facility] Last Admin: 12/16/16 08:22 Dose: 10 mg Ibuprofen (Motrin Tab) 400 mg PO Q6 PRN PRN Reason: Pain, moderate (4-7) Last Admin: 12/16/16 15:03 Dose: 400 mg Insulin Detemir (Levemir) 30 unit SC Q12 [facility] Last Admin: 12/16/16 11:47 Dose: Not Given Insulin Human Regular (Humulin R Low) 0 units SC ACHS [facility] Last Admin: 12/16/16 11:46 Dose: 2 units Lisinopril (Zestril) 10 mg PO DAILY [facility] Last Admin: 12/16/16 09:09 Dose: 10 mg Metoprolol Succinate (Toprol Xl) 100 mg PO BRK [facility] Last Admin: 12/16/16 08:29 Dose: 100 mg Ondansetron HCl (Zofran Inj) 4 mg IVP Q6 PRN PRN Reason: Nausea/Vomiting Pantoprazole Sodium (Protonix Ec Tab) 40 mg PO DAILY [facility] Last Admin: 12/16/16 09:10 Dose: 40 mg Sitagliptin Phosphate (Januvia) 50 mg PO DAILY [facility] Last Admin: 12/16/16 09:10 Dose: 50 mg Trazodone HCl (Desyrel) 50 mg PO HS PRN PRN Reason: insomnia - Labs Labs: 12/15/16 07:55 12/15/16 07:55 PT 11.2 Seconds (9.9-11.8) 12/12/16 16:35 INR 1.04 (0.93-1.08) 12/12/16 16:35 APTT 23.5 Seconds (23.7-30.8) L 12/12/16 16:35 - Constitutional Appears: Non-toxic, No Acute Distress, Unkempt - Head Exam Head Exam: ATRAUMATIC, NORMAL INSPECTION, NORMOCEPHALIC - Eye Exam Eye Exam: Normal appearance, PERRL Pupil Exam: PERRL - ENT Exam ENT Exam: Mucous Membranes Moist - Neck Exam Neck Exam: Normal Inspection - Respiratory Exam Respiratory Exam: Clear to Ausculation Bilateral, NORMAL BREATHING PATTERN. absent: Wheezes, Respiratory Distress - Cardiovascular Exam Cardiovascular Exam: REGULAR RHYTHM, RRR, +S1, +S2. absent: Murmur - GI/Abdominal Exam GI & Abdominal Exam: Soft, Normal Bowel Sounds. absent: Bruit, Distended, Guarding, Rigid, Tenderness - Extremities Exam Extremities Exam: Full ROM, Normal Capillary Refill, Normal Inspection. absent : Joint Swelling, Pedal Edema - Back Exam Back Exam: NORMAL INSPECTION. absent: CVA tenderness (L), CVA tenderness (R) - Neurological Exam Neurological Exam: Alert, Awake, Oriented x3 - Psychiatric Exam Psychiatric exam: Manic - Skin Skin Exam: Dry, Intact, Warm Assessment and Plan - Assessment and Plan (Free Text) Assessment: Syncope -Hx of SVT, no episodes during hospital course -EKG on admission: sinus tachycardia @ 112BPM, troponins negative -Cardiology consulted: Dr. Hernandez - christine appreciated -Neurology consulted: Dr. Lucie Burleson- christine appreciated -EEG unremarkable -Head CT: Unremarkable Head CT. -Cervical Spine CT: Straightening of the normal cervical lordosis may be related to muscle spasm or positioning. No evidence of acute fracture or subluxation. Heterogeneous appearance of the included portions lower thyroid gland with calcified nodule in the right lower pole and hypodense left lower pole nodule. -Hep B,C, HIV- negative -ECHO and carotid doppler unremarkable Fall -Motrin, Percocet, Morphine PRN for pain -Left Ankle MRI unremarkable -Pelvis Xray, Knee Xray, Elbow Xray, CXR: all negative -MRI Brain, Left knee were unable to be done due to patient's non compliance -CT Left upper extremity performed today, results pending Non productive cough -Robitussin PO PRN HTN -Restarted home medications: Lisinopril 10mg PO daily, Metoprolol 100mg PO daily HLD -Lipitor 10mg PO QHS -Tricor 145mg PO daily -Lipid panel TAG 2, Cholesterol 266 DM -Accuchecks -continue glipizide, Januvia and Levemir. 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 -Psychiatry eval refused by patient <Tai Carter - Last Filed: 12/18/16 15:35> Objective - Vital Signs/Intake and Output Vital Signs (last 24 hours): Temp Pulse Resp BP Pulse Ox 98.2 F 85 20 107/79 98 12/17/16 16:00 12/17/16 16:00 12/17/16 16:00 12/17/16 16:00 12/17/16 16:00 Intake and Output: 12/18/16 12/18/16 06:59 18:59 Intake Total 540 120 Balance 540 120 - Medications Medications: Current Medications Alprazolam (Xanax) 0.5 mg PO TID PRN; Protocol PRN Reason: Anxiety Last Admin: 12/17/16 15:52 Dose: 0.5 mg Artificial Tears (Artificial Tears) 1 ml OU BID [facility] Last Admin: 12/17/16 18:37 Dose: 1 drop Atorvastatin Calcium (Lipitor) 10 mg PO DIN [facility] Last Admin: 12/17/16 18:38 Dose: 10 mg Bacitracin (Bacitracin) 1 ea TOP TID [facility] Last Admin: 12/17/16 15:52 Dose: 1 ea Dicyclomine HCl (Bentyl) 10 mg PO QID PRN PRN Reason: ibs Last Admin: 12/17/16 20:46 Dose: 10 mg Enoxaparin Sodium (Lovenox) 40 mg SC DAILY [facility] PRN Reason: Protocol Last Admin: 12/17/16 09:54 Dose: 40 mg Fenofibrate (Tricor) 145 mg PO DAILY [facility] Last Admin: 12/17/16 09:54 Dose: 145 mg Glipizide (Glucotrol) 10 mg PO ACB [facility] Last Admin: 12/17/16 09:54 Dose: 10 mg Guaifenesin (Robitussin) 100 mg PO Q4H PRN PRN Reason: Cough Last Admin: 12/17/16 20:46 Dose: 100 mg Ibuprofen (Motrin Tab) 400 mg PO Q6 PRN PRN Reason: Pain, moderate (4-7) Last Admin: 12/17/16 22:07 Dose: 400 mg Insulin Detemir (Levemir) 30 unit SC Q12 [facility] Last Admin: 12/17/16 22:06 Dose: 30 unit Insulin Human Regular (Humulin R Low) 0 units SC ACHS [facility] Last Admin: 12/17/16 22:06 Dose: Not Given Lisinopril (Zestril) 10 mg PO DAILY [facility] Last Admin: 12/17/16 09:54 Dose: 10 mg Metoprolol Succinate (Toprol Xl) 100 mg PO BRK [facility] Last Admin: 12/17/16 09:54 Dose: 100 mg Ondansetron HCl (Zofran Inj) 4 mg IVP Q6 PRN PRN Reason: Nausea/Vomiting Pantoprazole Sodium (Protonix Ec Tab) 40 mg PO DAILY [facility] Last Admin: 12/17/16 09:54 Dose: 40 mg Sitagliptin Phosphate (Januvia) 50 mg PO DAILY [facility] Last Admin: 12/17/16 09:54 Dose: 50 mg Trazodone HCl (Desyrel) 50 mg PO HS PRN PRN Reason: insomnia - Labs Labs: 12/18/16 06:30 12/18/16 06:30 PT 11.2 Seconds (9.9-11.8) 12/12/16 16:35 INR 1.04 (0.93-1.08) 12/12/16 16:35 APTT 23.5 Seconds (23.7-30.8) L 12/12/16 16:35 Assessment and Plan - Assessment and Plan (Free Text) Assessment: attending note; Patient seen and examined with resident. complaining of generalized discomfort. complaining of pain in the left knee and ankle area. history of Sevilla's palsy. Artificial tears ordered. CT head, CT cervical spine, x-rays negative. MRI of ankle negative. anxiety depression; refused to go to Psych floor again today as per Psychiatrist recommendations. Chest discomfort: cardiac enzyme negative. case discussed with cardiology in detail. currently in sinus rhythm. Continue metoprolol. Diabetes; continue metformin, januvia and Levemir. echocardiogram normal. carotid Doppler without significant stenosis. EEG normal. Patient went for MRI and refused to wait for MRI and came back. physical therapy evaluation appreciated. Home PT referral given. Patient took out the cast last night. Ortho evalution appreciated. upon discharge patient will follow-up with PMD . Attending/Attestation - Attestation I have personally seen and examined this patient.: Yes I have fully participated in the care of the patient.: Yes I have reviewed all pertinent clinical information, including history, physical exam and plan: Yes
--- NOTE | 2016-12-16 17:17 | CT ---
PROCEDURE: CT left elbow and proximal forearm HISTORY: elbow and forearm r/o fracture COMPARISON: None available TECHNIQUE: 2.5 mm contiguous axial sections were acquired through left elbow and proximal forearm. Sagittal and coronal images were reformatted from the axial scan. FINDINGS: There is no evidence of fracture. There is no lytic or blastic osseous lesion. There is no joint effusion seen. IMPRESSION: No evidence of fracture.
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
[2016-12-17] MEDS: Insulin Reg-LOW-Coverage SC SCH ×5 (09:53→22:06)
[2016-12-17] MEDS: Enoxaparin 40 mg Syringe SC SCH (09:54)
[2016-12-17] MEDS: Pantoprazole 40 mg EC Tab PO SCH (09:54)
[2016-12-17] MEDS: Metoprolol Succinate 100 mg XL Tab PO SCH (09:54)
[2016-12-17] MEDS: Bacitracin 500 Units/gm Oint Foilpak UD TOP SCH ×2 (09:54→15:52)
[2016-12-17] MEDS: Insulin Detemir 100 units/ml Vial (Levemir) SC SCH ×2 (09:56→22:06)
[2016-12-17] MEDS: Aritificial Tears (15ml) OU SCH ×2 (10:03→18:37)
--- NOTE | 2016-12-17 15:38 | PN ---
DATE: 12/17/2016 The patient reports sharp chest discomfort. She denies shortness of breath. PHYSICAL EXAMINATION: VITAL SIGNS: Blood pressure 135/86, heart rate 75, temperature 97.7, respirations 20. HEENT: Right facial palsy. NECK: No JVD. CHEST: Clear. HEART: S1, S2 regular. EXTREMITIES: No edema. ASSESSMENT: 1. Atypical chest discomfort. 2. Syncopal episode. 3. Recent Sevilla's palsy. 4. Diabetes mellitus. 5. Depression. RECOMMENDATIONS: Continue current medications including Lipitor, subcutaneous Lovenox, Toprol-XL and Tricor as well as Zestril. Obtain 12-lead EKG. Miki Hernandez MD cc: [id number] TT: 12/17/2016 15:37:36 Confirmation # [id number] Dictation # [id number] en
[2016-12-17 16:26] VITALS: O2SAT 98
--- NOTE | 2016-12-17 19:11 | CP.PCM.PN ---
<Elvis Waters - Last Filed: 12/17/16 19:08> Subjective - Date & Time of Evaluation Date of Evaluation: 12/17/16 Time of Evaluation: 07:20 - Subjective Subjective: Dr. Waters PGY 1 Hospitalist Note Patient seen and evaluated at bedside. She states that she continues to have a headache and left knee and elbow pain. She states that she wants an MRI done but when told she could have it outpatient, she became agitated. She reports having pain since falling and is afraid of having fractures. When reassured that the imaging shows no breaks, she calmed down. She states she has many social issues but does not wish to speak to a psychiatrist. She is awaiting MRI. Objective - Vital Signs/Intake and Output Vital Signs (last 24 hours): Temp Pulse Resp BP Pulse Ox 98.2 F 85 20 107/79 98 12/17/16 16:00 12/17/16 16:00 12/17/16 16:00 12/17/16 16:00 12/17/16 16:00 Intake and Output: 12/17/16 12/18/16 18:59 06:59 Intake Total 600 Balance 600 - Medications Medications: Current Medications Alprazolam (Xanax) 0.5 mg PO TID PRN; Protocol PRN Reason: Anxiety Last Admin: 12/17/16 15:52 Dose: 0.5 mg Artificial Tears (Artificial Tears) 1 ml OU BID [facility], [facility] Last Admin: 12/17/16 18:37 Dose: 1 drop Atorvastatin Calcium (Lipitor) 10 mg PO DIN [facility], [facility] Last Admin: 12/17/16 18:38 Dose: 10 mg Bacitracin (Bacitracin) 1 ea TOP TID [facility], [facility] Last Admin: 12/17/16 15:52 Dose: 1 ea Dicyclomine HCl (Bentyl) 10 mg PO QID PRN PRN Reason: ibs Last Admin: 12/16/16 21:32 Dose: 10 mg Enoxaparin Sodium (Lovenox) 40 mg SC DAILY [facility], [facility] PRN Reason: Protocol Last Admin: 12/17/16 09:54 Dose: 40 mg Fenofibrate (Tricor) 145 mg PO DAILY [facility] Last Admin: 12/17/16 09:54 Dose: 145 mg Glipizide (Glucotrol) 10 mg PO ACB [facility], [facility] Last Admin: 12/17/16 09:54 Dose: 10 mg Guaifenesin (Robitussin) 100 mg PO Q4H PRN PRN Reason: Cough Ibuprofen (Motrin Tab) 400 mg PO Q6 PRN PRN Reason: Pain, moderate (4-7) Last Admin: 12/17/16 16:01 Dose: 400 mg Insulin Detemir (Levemir) 30 unit SC Q12 [facility] Last Admin: 12/17/16 09:56 Dose: 30 unit Insulin Human Regular (Humulin R Low) 0 units SC ACHS [facility], [facility] Last Admin: 12/17/16 16:30 Dose: Not Given Lisinopril (Zestril) 10 mg PO DAILY [facility] Last Admin: 12/17/16 09:54 Dose: 10 mg Metoprolol Succinate (Toprol Xl) 100 mg PO BRK [facility] Last Admin: 12/17/16 09:54 Dose: 100 mg Ondansetron HCl (Zofran Inj) 4 mg IVP Q6 PRN PRN Reason: Nausea/Vomiting Pantoprazole Sodium (Protonix Ec Tab) 40 mg PO DAILY [facility] Last Admin: 12/17/16 09:54 Dose: 40 mg Sitagliptin Phosphate (Januvia) 50 mg PO DAILY [facility] Last Admin: 12/17/16 09:54 Dose: 50 mg Trazodone HCl (Desyrel) 50 mg PO HS PRN PRN Reason: insomnia - Labs Labs: 12/15/16 07:55 12/15/16 07:55 PT 11.2 Seconds (9.9-11.8) 12/12/16 16:35 INR 1.04 (0.93-1.08) 12/12/16 16:35 APTT 23.5 Seconds (23.7-30.8) L 12/12/16 16:35 - Constitutional Appears: Agitated - Head Exam Head Exam: NORMOCEPHALIC. absent: NORMAL INSPECTION (facial droop from sevilla's palsy) - Eye Exam Eye Exam: EOMI, PERRL Pupil Exam: NORMAL ACCOMODATION, PERRL - ENT Exam ENT Exam: Mucous Membranes Moist, Normal Oropharynx - Respiratory Exam Respiratory Exam: Clear to Ausculation Bilateral, NORMAL BREATHING PATTERN. absent: Rales, Rhonchi, Wheezes - Cardiovascular Exam Cardiovascular Exam: REGULAR RHYTHM, +S1, +S2. absent: Gallop, Rubs, Murmur - GI/Abdominal Exam GI & Abdominal Exam: Soft, Normal Bowel Sounds. absent: Tenderness - Extremities Exam Additional comments: left knee and elbow tenderness no weakness difficulty extending left elbow - Back Exam Back Exam: absent: tenderness - Neurological Exam Neurological Exam: Alert, Awake, Oriented x3 - Psychiatric Exam Psychiatric exam: Agitated, Anxious - Skin Skin Exam: Dry, Intact, Warm Assessment and Plan - Assessment and Plan (Free Text) Plan: Syncope -Hx of SVT, no episodes during hospital course -EKG on admission: sinus tachycardia @ 112BPM, troponins negative -Cardiology consulted: Dr. Hernandez - help appreciated -Neurology consulted: Dr. Lucie Burleson- christine appreciated -EEG unremarkable -Head CT: Unremarkable Head CT. -Cervical Spine CT: Straightening of the normal cervical lordosis may be related to muscle spasm or positioning. No evidence of acute fracture or subluxation. Heterogeneous appearance of the included portions lower thyroid gland with calcified nodule in the right lower pole and hypodense left lower pole nodule. -Hep B,C, HIV- negative -ECHO and carotid doppler unremarkable - f/u MRI brain Fall -Motrin, Percocet, Morphine PRN for pain -Left Ankle MRI unremarkable -Pelvis Xray, Knee Xray, Elbow Xray, CXR: all negative -f/u Left knee MRI -CT Left upper extremity performed today, results pending Non productive cough -Robitussin PO PRN HTN -Restarted home medications: Lisinopril 10mg PO daily, Metoprolol 100mg PO daily HLD -Lipitor 10mg PO QHS -Tricor 145mg PO daily -Lipid panel TAG 2072, Cholesterol 266 DM -Accuchecks -continue glipizide, Januvia and Levemir. -ISS- medium -HgbA1C 9.7 Hx Sevilla's Palsy -Artificial Tears TID Prophylactic measures -Lovenox for DVT ppx -Protonix for GI ppx -HHD -Zofran PRN -PT Eval -[facility]uler Eval -Psychiatry eval refused by patient Assessment and plan discussed with attending physician. <Mary Burleson - Last Filed: 12/20/16 12:51> Objective - Vital Signs/Intake and Output Vital Signs (last 24 hours): Temp Pulse Resp BP Pulse Ox 98 F 81 19 113/61 98 12/18/16 09:39 12/18/16 09:39 12/18/16 09:39 12/18/16 09:39 12/18/16 09:39 - Labs Labs: 12/18/16 06:30 12/18/16 06:30 PT 11.2 Seconds (9.9-11.8) 12/12/16 16:35 INR 1.04 (0.93-1.08) 12/12/16 16:35 APTT 23.5 Seconds (23.7-30.8) L 12/12/16 16:35 Attending/Attestation - Attestation I have personally seen and examined this patient.: Yes I have fully participated in the care of the patient.: Yes I have reviewed all pertinent clinical information, including history, physical exam and plan: Yes Notes (Text): I have seen and examined patient at bedside. This is 41 year old female with history of anxiety, depression, HTN, DM-2 who got admitted s/p fall. Complains of headache. MRI brain pending. SW consult appreciated. PT eval appreciated. Home PT referral was given. Upon discharge patient will follow-up with PMD . Dr Mary Burleson
--- NOTE | 2016-12-17 19:22 | MRI ---
PROCEDURE: MRI BRAIN WITHOUT CONTRAST HISTORY: headache COMPARISON: Comparison is made to the previous CT dated 12/12/2016 TECHNIQUE: Multiplanar, multisequence MR images of the brain were obtained without intravenous contrast enhancement. FINDINGS: HEMORRHAGE: None DWI: No evidence of an acute or early subacute infarction. BRAIN PARENCHYMA: No mass effect or edema. No atrophy or chronic microvascular ischemic changes. VENTRICLES: Unremarkable. No hydrocephalus. CRANIUM: Unremarkable. ORBITS: Grossly unremarkable. PARANASAL SINUSES/MASTOIDS: Clear VASCULAR SYSTEM: Skull base flow voids intact. OTHER FINDINGS: None. IMPRESSION: Suboptimal study due to the patient's motion artifact. No evidence of acute intracranial pathology. No evidence of mass lesion mass effect or midline shift.
[2016-12-18 07:05] LABS: ADD MANUAL DIFF? NO
[2016-12-18 07:27] LABS: BASO # 0.04 K/mm3 (0.0-2.0); BASO % 0.7 % (0.0-3.0); EOS # 0.2 (0.0-0.7); EOS % 3.1 % (1.5-5.0); GRAN # 2.18 (1.4-6.5); GRAN % 35.9 % (50.0-68.0); HEMATOCRIT 36.2 % (36.0-48.0); LYMPH # 3.2 (1.2-3.4); LYMPH % 52.1 % (22.0-35.0); MEAN CORPUSCULAR HEMOGLOBIN 28.1 pg (25.0-35.0); MEAN CORPUSCULAR HGB CONC 33.4 g/dl (31.0-37.0); MEAN PLATELET VOLUME 10.4 fl (7.0-11.0); MONO # 0.5 (0.1-0.6); MONO % 8.2 % (1.0-6.0); PLATELET COUNT 306 10^3/uL (120.0-450.0); RED CELL DISTRIBUTION WIDTH 14.2 % (11.5-14.5); WHITE BLOOD COUNT 6.1 10^3/ul (4.5-11.0)
[2016-12-18 07:29] LABS: ALB/GLOB RATIO 1.3 (1.1-1.8); ALKALINE PHOSPHATASE 64 U/L (38-133); ALT/SGPT 42 U/L (7-56); AST/SGOT 46 U/L (15-39); BILIRUBIN,TOTAL 0.3 mg/dL (0.2-1.3); BLOOD UREA NITROGEN 11 mg/dL (7-21); CALCIUM 9.4 mg/dL (8.4-10.5); CARBON DIOXIDE 26 mmol/L (21-33); CHLORIDE 105 mmol/L (95-110); GFR AFRICAN-AMERICAN > 60; GLUCOSE,RANDOM 152 mg/dL (70-110); POTASSIUM 4.6 mmol/L (3.6-5.0); SODIUM 140 mmol/L (132-148); TOTAL PROTEIN 6.8 g/dL (5.8-8.3)
--- NOTE | 2016-12-18 08:15 | CARD ---
APPROVED REPORT EKG Measurement Heart [id number] <Conclusion> Normal sinus rhythm Normal ECG
[2016-12-18] MEDS: Insulin Reg-LOW-Coverage SC SCH ×3 (08:23→16:55)
[2016-12-18] MEDS: Metoprolol Succinate 100 mg XL Tab PO SCH (08:26)
[2016-12-18] MEDS: Aritificial Tears (15ml) OU SCH ×2 (09:16→16:59)
[2016-12-18] MEDS: Bacitracin 500 Units/gm Oint Foilpak UD TOP SCH ×3 (09:22→16:59)
[2016-12-18] MEDS: Insulin Detemir 100 units/ml Vial (Levemir) SC SCH (09:24)
[2016-12-18] MEDS: Enoxaparin 40 mg Syringe SC SCH (09:24)
[2016-12-18] MEDS: Pantoprazole 40 mg EC Tab PO SCH (09:26)
[2016-12-18 09:40] VITALS: BP 113/61; PULSE 81; RESP 19; TEMP 98
--- NOTE | 2016-12-18 10:38 | MRI ---
PROCEDURE: MRI Left Knee HISTORY: Pain. COMPARISON: None available. TECHNIQUE: Multiecho multiplanar sequences were performed through the left knee. There is a mild amount of motion artifact FINDINGS: ANTERIOR CRUCIATE LIGAMENT:: Intact. POSTERIOR CRUCIATE LIGAMENT:: Intact. MEDIAL MENISCUS:: Intact. LATERAL MENISCUS:: Intact. MEDIAL COLLATERAL LIGAMENT:: Intact. LATERAL COLLATERAL LIGAMENT COMPLEX:: Intact. QUADRICEPS TENDON:: Intact. PATELLAR TENDON:: Intact. CARTILAGE:: Intact. JOINT FLUID:: Intact. OSSEOUS STRUCTURES:: Intact. OTHER FINDINGS: None. IMPRESSION: Negative study
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
== END 2016-12-18 19:39 | disposition home health service (06) ==
LOC: ED 15:34 → OBSVTOIN 18:30 → ERH 18:30 → INTOOBSV 18:30 → ERH 22:21 → 2RNO 12-13 00:03 → OBSVTOIN 12-14 09:35 → INTOOBSV 12-14 09:35 → 5RSO 12-14 15:13
PROVIDERS: ADMIT Internal Medicine; ATTEND Hospitalist
DX: R55 Syncope and collapse (principal); E11.65 Type 2 diabetes mellitus with hyperglycemia; I10 Essential (primary) hypertension; I47.1 Supraventricular tachycardia; F43.10 Post-traumatic stress disorder, unspecified; G51.0 Bell's palsy; E78.5 Hyperlipidemia, unspecified; R07.89 Other chest pain; F41.9 Anxiety disorder, unspecified; S50.319A Abrasion of unspecified elbow, initial encounter; S90.02XA Contusion of left ankle, initial encounter; S80.02XA Contusion of left knee, initial encounter; S50.02XA Contusion of left elbow, initial encounter; W17.89XA Other fall from one level to another, initial encounter; V48.4XXA Person boarding or alighting a car injured in noncollision transport accident, initial encounter; Y92.410 Unspecified street and highway as the place of occurrence of the external cause; Z79.84 Long term (current) use of oral hypoglycemic drugs; Z91.410 Personal history of adult physical and sexual abuse
CPT/HCPCS: 36415; 70450; 70551; 71010; 72125; 72170; 73080; 73200; 73560; 73721; 80053; 80061; 80074; 81001; 82550; 82948; 83036; 83615; 83735; 84443; 84484; 84703; 85025; 85378; 85610; 85730; 87390; 90471; 90715; 92507; 92523; 93005; 93306; 93880; 95812; 96372; 97116; 97161; 97530; 99285; G0378; G8978; G8979; G8996; G8997; G8999; J1650